=== PATIENT | male | born 1965 | race Caucasian/White ===

== ENCOUNTER 2024-04-28 12:31 | Outpatient (CLI) | payer BC | END 2024-04-28 12:32 | disposition home or self-care (01) | LOC: CT 12:31 | PROVIDERS: ATTEND Urology | DX: R31.9 Hematuria, unspecified (principal); R10.9 Unspecified abdominal pain; K57.30 Diverticulosis of large intestine without perforation or abscess without bleeding; N28.89 Other specified disorders of kidney and ureter | CPT/HCPCS: 74178; 82565 ==

== ENCOUNTER 2024-09-07 12:44 | Outpatient (CLI) | payer BC ==
[~2024-09-07 12:44] MED LIST: Iopamidol 370 76% 100 ML VIAL ONE
== END 2024-09-07 12:45 | disposition home or self-care (01) ==
LOC: CT 12:44
PROVIDERS: ATTEND Urology
DX: R31.21 Asymptomatic microscopic hematuria (principal)
CPT/HCPCS: 74178; 82565; Q9967

== ENCOUNTER 2024-11-12 22:38 | Emergency (ER) | payer BC | END 2024-11-13 00:10 | disposition home or self-care (01) | LOC: ERS 22:38 | DX: R33.9 Retention of urine, unspecified (principal); I10 Essential (primary) hypertension; Z55.0 Illiteracy and low-level literacy | CPT/HCPCS: 51702; 99283 ==

== ENCOUNTER 2024-12-01 06:02 | Day surgery (SDC) | payer BC ==
[2024-11-30 10:46] VITALS: BMI 23.8
[2024-12-01] MEDS ORDERED: fentaNYL PF 100 MCG/2 ML SYRINGE ONE ×3 (06:58→09:14)
[2024-12-01] MEDS ORDERED: PROPOFOL 20 ML ONE ×2 (06:58→07:41)
[2024-12-01] MEDS ORDERED: Midazolam HCl 2 mg/2 ml Vial ONE (06:58)
[2024-12-01] MEDS ORDERED: Lidocaine 2% PF 5 ML VIAL ONE (06:58)
[2024-12-01] MEDS ORDERED: Rocuronium Bromide 10 MG/ML (10ML VIAL) ONE (06:58)
[2024-12-01] MEDS ORDERED: mitoMYcin 40 MG in Sodium Chloride 0.9% 40 ML I-VESIC SCH (07:00)
[2024-12-01] MEDS ORDERED: Sodium Chloride 0.9% 100 ML ONE (07:09)
[2024-12-01] MEDS ORDERED: CEFAZOLIN 2 GM VIAL ONE (07:09)
[2024-12-01] MEDS ORDERED: Dexamethasone 4 mg/ml Vial ONE (07:38)
[2024-12-01] MEDS ORDERED: Ondansetron PF 4 MG/2 ML Vial ONE (07:38)
[2024-12-01] MEDS ORDERED: PHENYLEPHRINE-NS 100 MCG/ML 10 ML SYRINGE ONE (07:40)
[2024-12-01] MEDS ORDERED: SUGAMMADEX SODIUM 200 MG/2 ML VIAL ONE (07:40)
[2024-12-01] MEDS ORDERED: diphenhydrAMINE 50 MG/ML VIAL ONE (07:40)
[2024-12-01] MEDS ORDERED: Metoprolol Tartrate 5 MG (5 mL) VIAL ONE (07:48)
[2024-12-01] MEDS ORDERED: Hyoscyamine SL 0.125 MG TAB ONE (09:14)
[2024-12-01] MEDS ORDERED: Oxybutynin 5 MG TAB ONE (11:14)
[2024-12-01] MEDS ORDERED: HYDROcodone/Acetaminophen 5/325 mg Tablet ONE (11:54)
== END 2024-12-01 13:25 | disposition home or self-care (01) ==
LOC: SDC 06:02
PROVIDERS: ATTEND Urology
PROC: 0TBB8ZZ Excision of Bladder, Via Natural or Artificial Opening Endoscopic (ICD-10-PCS; principal; 2024-12-01)
DX: C67.5 Malignant neoplasm of bladder neck (principal); C67.0 Malignant neoplasm of trigone of bladder; N32.89 Other specified disorders of bladder; I10 Essential (primary) hypertension; E78.00 Pure hypercholesterolemia, unspecified; Z79.899 Other long term (current) drug therapy
CPT/HCPCS: 88305; J1100; J1200; J2250; J2405; J2704; J9280